=== PATIENT | female | born 1960 | race Caucasian/White ===

== ENCOUNTER 2020-07-23 06:43 | Day surgery (SDC) | payer BC, OTHER ==
[2020-07-22 10:49] VITALS: BMI 22.4
[~2020-07-23 06:43] MED LIST: Fentanyl 100 MCG/2 ML VIAL ONE; Midazolam HCl 2 mg/2 ml Vial ONE
[2020-07-23] MEDS ORDERED: Fluorouracil 100 MG, Enoxaparin Sodium 25 MG, EPINEPHrine 0.3 MG in Ophthalmic Irrigati... IRR SCH (06:45)
[2020-07-23] MEDS ORDERED: Cyclopentolate 1% Ophth Drops 15 ML BOT ONE (07:07)
[2020-07-23] MEDS ORDERED: Phenylephrine 2.5% Ophth Soln 5 ML BOT ONE (07:08)
[2020-07-23] MEDS ORDERED: Maxitrol 0.1% Opth Oint 3.5 GM TUBE ONE (07:51)
[2020-07-23] MEDS ORDERED: Triamcinolone 40 MG/ML VIAL ONE (07:51)
[2020-07-23] MEDS ORDERED: CEFAZOLIN 1 GM VIAL ONE (07:51)
[2020-07-23] MEDS ORDERED: Bupivacaine PF 0.75% SDV 10 ML ONE (07:51)
[2020-07-23] MEDS ORDERED: PROPOFOL 200 MG/20 ML VIAL ONE (07:51)
[2020-07-23] MEDS ORDERED: Lidocaine 4% PF 5 ML AMP ONE (07:51)
[2020-07-23] MEDS ORDERED: Lidocaine 1% PF 5 ML VIAL ONE (07:51)
== END 2020-07-23 09:25 | disposition home or self-care (01) ==
LOC: SDC 06:43
PROVIDERS: ATTEND Ophthalmology Retina Specialist
PROC: 08T53ZZ Resection of Left Vitreous, Percutaneous Approach (ICD-10-PCS; principal; 2020-07-23)
DX: H43.392 Other vitreous opacities, left eye (principal); Z88.5 Allergy status to narcotic agent
CPT/HCPCS: J0171; J0690; J1650; J2250; J2704; J3010; J3301; J3490; J9190

== ENCOUNTER 2020-08-20 06:23 | Day surgery (SDC) | payer OTHER ==
[2020-08-19 11:45] VITALS: BMI 22.4
[2020-08-20] MEDS ORDERED: EPINEPHrine 0.3 MG in Ophthalmic Irrigation Solution 500 ML IRR SCH (06:30)
[2020-08-20] MEDS ORDERED: Phenylephrine 2.5% Ophth Soln 5 ML BOT ONE (06:37)
[2020-08-20] MEDS ORDERED: Cyclopentolate 1% Opth Drop 2 ML BOT ONE (06:37)
[2020-08-20] MEDS ORDERED: Midazolam HCl 2 mg/2 ml Vial ONE (08:21)
[2020-08-20] MEDS ORDERED: Fentanyl 100 MCG/2 ML VIAL ONE (08:21)
[2020-08-20] MEDS ORDERED: Triamcinolone 40 MG/ML VIAL ONE (08:24)
[2020-08-20] MEDS ORDERED: Lidocaine 1% PF 5 ML VIAL ONE (08:24)
[2020-08-20] MEDS ORDERED: Lidocaine 4% PF 5 ML AMP ONE (08:24)
[2020-08-20] MEDS ORDERED: Maxitrol 0.1% Opth Oint 3.5 GM TUBE ONE (08:24)
[2020-08-20] MEDS ORDERED: CEFAZOLIN 1 GM VIAL ONE (08:24)
[2020-08-20] MEDS ORDERED: Bupivacaine PF 0.75% SDV 10 ML ONE (08:24)
== END 2020-08-20 09:36 | disposition home or self-care (01) ==
LOC: SDC 06:23
PROVIDERS: ATTEND Ophthalmology Retina Specialist
PROC: 08T43ZZ Resection of Right Vitreous, Percutaneous Approach (ICD-10-PCS; principal; 2020-08-20)
DX: H43.311 Vitreous membranes and strands, right eye (principal); M19.90 Unspecified osteoarthritis, unspecified site; Z88.5 Allergy status to narcotic agent
CPT/HCPCS: J0171; J0690; J2250; J3010; J3301; J3490